=== PATIENT | male | born 1940 | race Caucasian/White ===

== ENCOUNTER → 2017-06-01 | Outpatient (CLI) | payer OTHER | LOC: BHLMT 10:00 | PROVIDERS: ATTEND Internal Medicine Cardiovascular Disease | DX: R01.1 Cardiac murmur, unspecified (principal); I10 Essential (primary) hypertension | CPT/HCPCS: 93306-PO ==

== ENCOUNTER 2017-06-16 08:58 | Emergency (ER) | payer OTHER ==
--- NOTE | 2017-06-16 09:13 | EDPHY ---
H & P Time Seen by Provider: 06/16/17 09:05 HPI/ROS: CHIEF COMPLAINT: Constipation, dizziness, right flank pain. HISTORY OF PRESENT ILLNESS: Patient states he has had problems with constipation for about a month now. He was on VESIcare for overactive bladder and was switched to trospium in April. One of the known side effects his constipation. He was having normal BMs prior to April. He has tried MiraLax and enemas [id number] with minimal relief. Last normal BM which "was not a lot", was 2 days ago. Yesterday he gave himself 2 enemas and he had a little bit of soft stool out but still feels constipated. He saw a physician at the [facility] 2 weeks ago who said he needed to increase water intake as well as fruits which he has done. This has not helped much. Patient also states that approximately 12 days ago, a week ago last Sunday, he developed abdominal pain. He describes it as originating in the epigastrium and describes it as"like a ball in my stomach". That same day it seemed to move more to the right upper abdomen and lower chest. He states that it is worse with deep breath. It has been present for the entire 12 days and at worse is 5/10. Currently described as 1/10. He says pain is worse at night when lying down. Also worse with deep breath when the pain becomes sharp. He had some associated dizziness in the morning at the time when the pain originated. Also states that he tried to go skiing at level in [place] 2 days ago. As he was walking up the stairs at the skin. He became dizzy, short of breath, nauseated. He denies any pain at that time but was unable to ski. He rested in [place] waiting for a friend. He states when he checked his blood pressure when he got back home in [place] it was low. Denies fevers, chills , rash. No chest pain any time. No leg swelling. No vomiting. REVIEW OF SYSTEMS: Constitutional: No fever, no chills. Eyes: No discharge. ENT: No sore throat. Cardiovascular: No chest pain, no palpitations. Respiratory: No cough, some shortness of breath as per HPI Gastrointestinal: Mild Abdominal pain, constipation per HPI. Some nausea. No vomiting. No blood in stool. Genitourinary: No dysuria. Overactive bladder as stop taking medications 2 days ago. Musculoskeletal: No back pain. Skin: No rashes. Neurological: No headache. General Appearance: Alert, no distress. Eyes: Pupils equal and round no pallor or injection. ENT, Mouth: Mucous membranes moist. Respiratory: There are no retractions, rales in right lower lobe. Mild hypoxia. No respiratory distress. Cardiovascular: Regular rate and rhythm. Normal femoral pulses, no edema. Gastrointestinal: Abdomen is soft and nontender, no masses, bowel sounds normal. Rectal exam: no impacted stool, brown. Neurological: Awake, alert, cranial nerves intact, movement all 4 extremities. Skin: Warm and dry, no rashes. Musculoskeletal: Neck is supple nontender. Extremities are symmetrical, full range of motion, no edema. Psychiatric: Patient is oriented X 3, there is no agitation. Medical/surgical history: Hypothyroidism, prostate cancer. Overactive bladder. Prostate surgery. Hernia surgery. Social history: Nonsmoker, rare EtOH. Smoking Status: Never smoked Constitutional: Initial Vital Signs Temperature (C) 36.4 C 06/16/17 09:17 Heart Rate 61 06/16/17 09:17 Respiratory Rate 16 06/16/17 09:17 Blood Pressure 121/69 H 06/16/17 09:17 O2 Sat (%) 88 L 06/16/17 09:17 O2 Delivery Mode Nasal Cannula O2 (L/minute) 1 Allergies/Adverse Reactions: aspirin Allergy (Intermediate, Verified 06/16/17 09:03) Hives Home Medications: Medication Instructions Recorded Levothyroxine [Synthroid 75 mcg 75 mcg PO DAILY06 04/03/14 (*)] Aspirin [Aspirin 81mg (*)] 81 mg PO DAILY 04/08/14 Ibuprofen [Advil] 200 mg PO Q6H PRN 04/08/14 Doxazosin Mesylate [Cardura] 06/16/17 Lisinopril 06/16/17 Trospium Chloride 20 BID 06/16/17 Medical Decision Making - Diagnostics Imaging Results: Imaging Impressions Chest X-Ray 06/16/17 09:49 Impression: Suspect cardiomegaly with an enlarged left ventricle. A routine PA and lateral chest in full inspiration would be useful to better evaluate the cardiac size and contour. Chest/Thorax CTA 06/16/17 10:31 Impression: 1. No pulmonary embolic disease. 2. Four-chamber cardiomegaly with LAD CAD. 3. Possible gallbladder disease. If clinically indicated consider a gallbladder sonogram. 4. New asymmetric elevation of the right hemidiaphragm. If there is concern for diaphragmatic paralysis, then chest fluoroscopy could be performed. General information for patients regarding this examination can be found at [email or web address]. If you have questions or comments about this report, please contact me at [phone] (hospital) or [phone] (cell). Imaging: Discussed imaging studies w/ call center coordinator Radiologist, I viewed and interpreted images myself ED Course/Re-evaluation: EKG performed shows normal sinus rhythm no acute changes. See trace master for details. CT results discussed with patient and his . Pertinent findings are diffuse cardiomegaly with some coronary artery disease. Also mentioned was a "funny looking" gallbladder with heterogeneity. Repeat exam shows patient without chest pain, shortness of breath or abdominal pain or tenderness. Feel patient is stable for outpatient follow-up, reviewed return precautions in detail. No complaints on re-evaluation prior to discharge. O2 sats in the mid 90s. Differential Diagnosis: Differential diagnosis includes but is not limited to constipation, bowel obstruction, cholecystitis, pneumonia, pulmonary embolism, congestive heart failure, arrhythmia or electrolyte abnormality. Patient's constipation likely related to his medication for overactive bladder and he is going to switch back to his previous medication VESIcare. Additionally he will be using over-the- counter stool softeners and fiber. His symptoms of dizziness and shortness of breath that he experiences on have not recurred and may be related to his cardiomegaly and dehydration as had low blood pressure after event. There is no evidence at this time of acute coronary syndrome, CHF, pulmonary embolism , hemodynamic instability. Plan is for close follow-up next week with both primary care and cardiology. He understands return precautions. Stable for discharge. - Data Points Laboratory Results: Laboratory Results 06/16/17 10:00 06/16/17 10:00 06/16/17 06/16/17 06/16/17 11:04 10:00 10:00 WBC RBC Hgb Hct MCV MCH MCHC RDW Plt Count MPV Neut % (Auto) Lymph % (Auto) Mower % (Auto) Eos % (Auto) Baso % (Auto) Nucleat RBC Rel Count Absolute Neuts (auto) Absolute Lymphs (auto) Absolute Monos (auto) Absolute Eos (auto) Absolute Basos (auto) Absolute Nucleated RBC Immature Gran % Immature Gran # D-Dimer 2.09 ug/mLFEU H ug/mLFEU (0.00-0.50) Sodium 141 mEq/L mEq/L (135-145) Potassium 5.0 mEq/L mEq/L (3.5-5.2) Chloride 103 mEq/L mEq/L (97-110) Carbon Dioxide 27 mEq/l mEq/l (22-31) Anion Gap 11 mEq/L mEq/L (8-16) BUN 20 mg/dL mg/dL (7-23) Creatinine 1.1 mg/dL mg/dL (0.7-1.3) Estimated GFR > 60 Glucose 99 mg/dL mg/dL (70-100) Calcium 9.3 mg/dL mg/dL (8.5-10.4) Total Bilirubin 0.5 mg/dL mg/dL (0.1-1.4) Conjugated Bilirubin 0.3 mg/dL mg/dL (0.0-0.5) Unconjugated Bilirubin 0.2 mg/dL mg/dL (0.0-1.1) AST 27 IU/L IU/L (17-59) ALT 44 IU/L IU/L (21-72) Alkaline Phosphatase 80 IU/L IU/L (38-126) Troponin I < 0.012 ng/mL ng/mL (0.000-0.034) Total Protein 7.6 g/dL g/dL (6.3-8.2) Albumin 4.0 g/dL g/dL (3.5-5.0) Stool Occult Bld Scrn NEGATIVE (NEGATIVE) 06/16/17 10:00 WBC 7.22 10^3/uL 10^3/uL (3.80-9.50) RBC 4.76 10^6/uL 10^6/uL (4.40-6.38) Hgb 15.0 g/dL g/dL (13.7-17.5) Hct 45.1 % % (40.0-51.0) MCV 94.7 fL fL (81.5-99.8) MCH 31.5 pg pg (27.9-34.1) MCHC 33.3 g/dL g/dL (32.4-36.7) RDW 11.9 % % (11.5-15.2) Plt Count 302 10^3/uL 10^3/uL (150-400) MPV 9.1 fL fL (8.7-11.7) Neut % (Auto) 62.8 % % (39.3-74.2) Lymph % (Auto) 21.6 % % (15.0-45.0) Mower % (Auto) 9.8 % % (4.5-13.0) Eos % (Auto) 4.7 % % (0.6-7.6) Baso % (Auto) 1.0 % % (0.3-1.7) Nucleat RBC Rel Count 0.0 % % (0.0-0.2) Absolute Neuts (auto) 4.53 10^3/uL 10^3/uL (1.70-6.50) Absolute Lymphs (auto) 1.56 10^3/uL 10^3/uL (1.00-3.00) Absolute Monos (auto) 0.71 10^3/uL 10^3/uL (0.30-0.80) Absolute Eos (auto) 0.34 10^3/uL 10^3/uL (0.03-0.40) Absolute Basos (auto) 0.07 10^3/uL 10^3/uL (0.02-0.10) Absolute Nucleated RBC 0.00 10^3/uL 10^3/uL (0-0.01) Immature Gran % 0.1 % % (0.0-1.1) Immature Gran # 0.01 10^3/uL 10^3/uL (0.00-0.10) D-Dimer Sodium Potassium Chloride Carbon Dioxide Anion Gap BUN Creatinine Estimated GFR Glucose Calcium Total Bilirubin Conjugated Bilirubin Unconjugated Bilirubin AST ALT Alkaline Phosphatase Troponin I Total Protein Albumin Stool Occult Bld Scrn Medications Given: Discontinued Medications Sodium Chloride (Ns) 500 mls @ 1,000 mls/hr IV EDNOW ONE PRN Reason: Protocol Stop: 06/16/17 10:17 Last Admin: 06/16/17 10:09 Dose: 500 mls Departure - Departure Disposition: Home, Routine, Self-Care Clinical Impression: Constipation Condition: Good Instructions: Constipation (DC) Additional Instructions: For constipation continue MiraLax and dried fruits as you were previously doing. Also add Colace or Dulcolax [id number]. He can use this twice a day. As we discussed you should call your primary care physician or the window glass installer on Sunday for follow-up appointment. They can review your echocardiogram and CT results. Return to the emergency department if he developed shortness of breath, chest pain, worsening dizziness or other concerning new symptoms. Referrals: Geraldine Sabillon MD [Primary Care Provider] - As per Instructions Conner Wilson MD [Medical Doctor] - As per Instructions
[2017-06-16 09:25] VITALS: RESP 16; TEMP 97.5
[2017-06-16] MEDS ORDERED: NS 500 ML IV ONE (09:48)
--- NOTE | 2017-06-16 10:03 | CPEKG ---
Heart Rate: 57 RR Interval: 1053 P-R Interval: 244 QRSD Interval: 92 QT Interval: 420 QTC Interval: 409 P Page: -19 QRS Page: -1 T Wave Page: -2 EKG Severity - ABNORMAL ECG - EKG Impression: SINUS RHYTHM EKG Impression: FIRST DEGREE AV BLOCK EKG Impression: NONSPECIFIC T ABNORMALITIES, INFERIOR LEADS Preliminary Awaiting MD Review
[2017-06-16 10:08] LABS: PLATELET COUNT 302 10^3/uL (150-400)
[2017-06-16] MEDS ORDERED: IOPAMIDOL (ISOVUE 370) 100 ML BTL IV ONE (10:33)
[2017-06-16 11:34] VITALS: O2SAT 94
[2017-06-16 13:08] VITALS: BP 141/84; PULSE 54
== END 2017-06-16 12:45 | disposition home or self-care (01) ==
LOC: CED 08:58
DX: K59.00 Constipation, unspecified (principal); E86.9 Volume depletion, unspecified; Z79.82 Long term (current) use of aspirin; Z85.46 Personal history of malignant neoplasm of prostate
CPT/HCPCS: 71045; 71275; 93005; 96360; 99285; Q9967; 80048-PO; 80076-PO; 82270-PO; 84484-PO; 85025-PO; 85378-PO

== ENCOUNTER → 2017-06-26 | Outpatient (CLI) | payer OTHER | LOC: FIMAGING 08:30 | PROVIDERS: ATTEND Internal Medicine | DX: K80.18 Calculus of gallbladder with other cholecystitis without obstruction (principal) | CPT/HCPCS: 78226; A9537 ==